=== PATIENT | female | born 1975 | race Two or more races ===

== ENCOUNTER 2023-09-02 04:12 | Emergency (ER) | payer MEDICAID, OTHER ==
[~2023-09-02] VITALS: Ht 154.9 cm; Wt 62.3 kg
[2023-09-02 06:41] LABS: Urine Bacteria FEW /hpf (None Seen); Urine Blood Negative /uL (Negative); Urine Clarity HAZY (Clear); Urine Color Brown (Yellow); Urine Hyaline Cast FEW /lpf (0 - 2); Urine Mucus FEW (None Seen); Urine Protein, UAD 1+ (Negative); Urine Specific Gravity 1.026 (1.001-1.035); Urine WBC 101 /hpf (0 - 5); Urine pH 5.5 (5.0-8.0)
[2023-09-02 06:44] VITALS: BP 103/54; PULSE 74; RESP 18; TEMP 97.9; O2SAT 96
[2023-09-02] MEDS ORDERED: PHENAZOPYRIDINE HCL 100 MG TAB PO ONE (07:15)
[2023-09-02] MEDS ORDERED: PHEN-922 PO (07:19)
[2023-09-02] MEDS ORDERED: BACDST PO (07:19)
== END 2023-09-02 07:28 | disposition home or self-care (01) ==
LOC: ER 04:12
DX: N39.0 Urinary tract infection, site not specified (principal)
CPT/HCPCS: 81001